=== PATIENT | male | born 1975 | race Two or more races ===

== ENCOUNTER 2023-04-08 17:05 | Inpatient (IN) | payer OTHER ==
[~2023-04-08] VITALS: Ht 165.1 cm; Wt 78.5 kg
[2023-04-08] MEDS ORDERED: AMOX1TAB16 PO (18:31)
[2023-04-08] MEDS ORDERED: METR500T PO (18:31)
[2023-04-08 18:37] LABS: BASOPHILS % (AUTO) 0.4 % (0.0-2.0); EOSINOPHILS # (AUTO) 0.1 K/uL (0.0-0.7); EOSINOPHILS % (AUTO) 1.8 % (0.0-6.0); HEMATOCRIT 40 % (39-51); HEMOGLOBIN 13.3 g/dL (13.5-17.5); LYMPHOCYTES # (AUTO) 1.2 K/uL (0.8-4.8); LYMPHOCYTES % (AUTO) 23.4 % (20.0-44.0); MEAN CORPUSCULAR HEMOGLOBIN 31 PG (26.0-33.0); MEAN CORPUSCULAR HGB CONC 33 g/dl (31.0-36.0); MEAN CORPUSCULAR VOLUME 92 fL (80-96); MONOCYTES # (AUTO) 0.4 K/uL (0.1-1.30); MONOCYTES % (AUTO) 8.6 % (2.0-12.0); NEUTROPHILS # (AUTO) 3.4 K/uL (1.8-8.9); NEUTROPHILS % (AUTO) 65.8 % (43.0-81.0); PLATELET COUNT (AUTO) 361 K/uL (150-450); RED BLOOD CELL COUNT(AUTO) 4.34 MIL/uL (4.5-6.0); RED CELL DISTRIBUTION WIDTH 14.2 % (11.5-15.0); WHITE BLOOD COUNT (AUTO) 5.1 K/uL (4.3-11.0)
[2023-04-08 18:45] LABS: CALCIUM, SERUM 9.8 mg/dL (8.5-10.1); CREATININE 0.8 mg/dL (0.6-1.3); POTASSIUM 3.5 mmol/L (3.5-5.1)
[2023-04-08 18:53] LABS: INR 1.06 (0.91-1.10); PARTIAL THROMBOPLASTIN TIME 32.5 SEC (24.3-34.3); PROTHROMBIN TIME 11.2 SECS (9.2-11.1)
[2023-04-08] MEDS ORDERED: MAGNESIUM HYDROXIDE 30 ML UDC PO PRN (21:00)
[2023-04-08] MEDS ORDERED: MAG HYDROX/AL HYDROX/SIMETH 30 ML UDC PO PRN (21:00)
[2023-04-08] MEDS ORDERED: Z GUARD REMEDY 4 OZ OINT TP PRN (21:00)
[2023-04-08] MEDS ORDERED: DEXTROSE 50%-WATER 50 ML DISP.SYRIN IV PRN (21:00)
[2023-04-09] MEDS ORDERED: CEFEPIME 2 GM in IV D5W 100 ML IV SCH (03:30)
[2023-04-09 03:40] VITALS: BP 124/83; TEMP 97.7
[2023-04-09] MEDS: ENOXAPARIN SODIUM 40 MG/0.4 ML DISP.SYRIN SQ SCH (04:01)
[2023-04-09] MEDS: VANCOMYCIN 1.5 GM in IV D5W 500ml IV ONE (05:30)
[2023-04-09] MEDS ORDERED: CEFEPIME 1 GM VIAL ONE (05:44)
[2023-04-09] MEDS: BLOOD SUGAR DIAGNOSTIC 1 EACH STRIP IN SCH (06:43)
[2023-04-09] MEDS: INSULIN REGULAR, HUMAN 100 UNIT/ML 3 ML VIAL SQ PRN (06:43)
[2023-04-09 06:58] LABS: BASOPHILS % (AUTO) 0.3 % (0.0-2.0); EOSINOPHILS # (AUTO) 0.1 K/uL (0.0-0.7); EOSINOPHILS % (AUTO) 3.4 % (0.0-6.0); HEMATOCRIT 41 % (39-51); HEMOGLOBIN 13.6 g/dL (13.5-17.5); LYMPHOCYTES # (AUTO) 1.1 K/uL (0.8-4.8); LYMPHOCYTES % (AUTO) 28.8 % (20.0-44.0); MEAN CORPUSCULAR HEMOGLOBIN 31 PG (26.0-33.0); MEAN CORPUSCULAR HGB CONC 33 g/dl (31.0-36.0); MEAN CORPUSCULAR VOLUME 92 fL (80-96); MONOCYTES # (AUTO) 0.3 K/uL (0.1-1.30); MONOCYTES % (AUTO) 7.5 % (2.0-12.0); NEUTROPHILS # (AUTO) 2.4 K/uL (1.8-8.9); PLATELET COUNT (AUTO) 362 K/uL (150-450); RED BLOOD CELL COUNT(AUTO) 4.46 MIL/uL (4.5-6.0); RED CELL DISTRIBUTION WIDTH 14.4 % (11.5-15.0); WHITE BLOOD COUNT (AUTO) 3.9 K/uL (4.3-11.0)
[2023-04-09 07:08] LABS: CALCIUM, SERUM 9.7 mg/dL (8.5-10.1); CREATININE 0.9 mg/dL (0.6-1.3); MAGNESIUM 2.1 mg/dL (1.8-2.4); PHOSPHORUS 4.6 mg/dL (2.5-4.9); POTASSIUM 3.4 mmol/L (3.5-5.1)
[2023-04-09 07:30] VITALS: BP 102/68; TEMP 98.1; O2SAT 98
[2023-04-09] MEDS: PANTOPRAZOLE 40 MG TABLET.DR PO SCH (07:34)
[2023-04-09] MEDS: CEFEPIME 2 GM in IV D5W 100 ML IV SCH (07:34)
[2023-04-09] MEDS: POTASSIUM CHLORIDE 20 MEQ TAB.PRT.SR PO ONE (09:28)
[2023-04-09] MEDS: VANCOMYCIN 1 GM in IV D5W 250 ML IV SCH (13:22)
[2023-04-09] MEDS: ACETAMINOPHEN 325 MG TABLET PO PRN (14:19)
[2023-04-09 16:00] VITALS: BP 123/85; TEMP 98.2; O2SAT 98
[2023-04-09 20:00] VITALS: BP 130/87; TEMP 98.4; O2SAT 99
[2023-04-10] MEDS ORDERED: FENTANYL PF 250MCG/5ML AMPUL ONE (07:16)
[2023-04-10] MEDS ORDERED: MIDAZOLAM HCL 2 MG/2ML VIAL ONE (07:17)
[2023-04-10] MEDS ORDERED: HYDROMORPHONE INJ 2 MG/ML DISP.SYRIN ONE (07:18)
[2023-04-10] MEDS ORDERED: FAMOTIDINE/PF INJ 20 MG/2 ML VIAL IV ONE (07:19)
[2023-04-10] MEDS ORDERED: ROCURONIUM BROMIDE 50 MG/5 ML ONE (07:19)
[2023-04-10] MEDS ORDERED: BUPIVACAINE 0.25% 75 MG/30 ML VIAL ONE (07:32)
[2023-04-10] MEDS ORDERED: ANESTHESIA TRAY IN PYXIS 1 EA TRAY MC ONE (07:32)
[2023-04-10] MEDS ORDERED: POLYMYXIN B SULFATE 500,000 UNITS ONE ×2 (07:32→08:48)
[2023-04-10 07:43] LABS: CREATININE 0.8 mg/dL (0.6-1.3); POTASSIUM 3.5 mmol/L (3.5-5.1)
[2023-04-10] MEDS ORDERED: VANCOMYCIN 1 GM VIAL ONE ×2 (07:53→09:41)
[2023-04-10 08:00] VITALS: BP 139/89; TEMP 98.8; O2SAT 98
[2023-04-10] MEDS ORDERED: HEMOSTATIC MATRIX 8 ML 1 EACH PAD MC ONE (09:46)
[2023-04-10] MEDS ORDERED: TRANEXAMIC ACID 1,000 MG/10 ML VIAL ONE (09:46)
[2023-04-10] MEDS ORDERED: HYDROMORPHONE 1 MG/1 ML DISP.SYRIN ONE (10:35)
[2023-04-10 11:14] VITALS: BP 148/94; TEMP 98.5; O2SAT 98
[2023-04-10 11:24] LABS: HEMOGLOBIN 13.4 g/dL (13.5-17.5)
[2023-04-10 12:00] VITALS: BP 146/85; TEMP 97.7; O2SAT 100
[2023-04-10] MEDS ORDERED: VANCOMYCIN 1 GM in IV D5W 250 ML IV SCH (13:00)
[2023-04-10] MEDS: ENOXAPARIN SODIUM 40 MG/0.4 ML DISP.SYRIN SQ SCH (13:33)
[2023-04-10 16:00] VITALS: BP 112/71; TEMP 97.3; O2SAT 99
[2023-04-10] MEDS: MORPHINE SULFATE INJ 2 MG/ML DISP.SYRIN IV PRN (17:01)
[2023-04-10] MEDS: ONDANSETRON HCL/PF 4 MG/2 ML VIAL IVP PRN (18:15)
[2023-04-10 20:00] VITALS: BP 118/64; TEMP 98.3; O2SAT 99
[2023-04-11 07:36] LABS: CALCIUM, SERUM 9.3 mg/dL (8.5-10.1); CREATININE 0.8 mg/dL (0.6-1.3); POTASSIUM 3.9 mmol/L (3.5-5.1)
[2023-04-11 08:26] VITALS: BP 152/75; TEMP 97.7; O2SAT 95
[2023-04-11 12:30] VITALS: BP 142/64; TEMP 97.5; O2SAT 98
[2023-04-11 18:06] VITALS: BP 108/73; TEMP 98.6; O2SAT 98
[2023-04-11 20:00] VITALS: BP_SYST 101; BP_SYST 108; BP_DIAS 72; BP_DIAS 75; TEMP 99.3; O2SAT 98; O2SAT 99
[2023-04-12 07:00] VITALS: BP 118/72; TEMP 99.2; O2SAT 98
[2023-04-12 07:06] LABS: BASOPHILS % (AUTO) 0.2 % (0.0-2.0); EOSINOPHILS # (AUTO) 0.1 K/uL (0.0-0.7); EOSINOPHILS % (AUTO) 1.4 % (0.0-6.0); HEMATOCRIT 36 % (39-51); HEMOGLOBIN 11.9 g/dL (13.5-17.5); LYMPHOCYTES % (AUTO) 10.7 % (20.0-44.0); MEAN CORPUSCULAR HEMOGLOBIN 31 PG (26.0-33.0); MEAN CORPUSCULAR HGB CONC 33 g/dl (31.0-36.0); MEAN CORPUSCULAR VOLUME 93 fL (80-96); MONOCYTES # (AUTO) 0.7 K/uL (0.1-1.30); MONOCYTES % (AUTO) 6.8 % (2.0-12.0); NEUTROPHILS # (AUTO) 7.9 K/uL (1.8-8.9); NEUTROPHILS % (AUTO) 80.9 % (43.0-81.0); PLATELET COUNT (AUTO) 319 K/uL (150-450); RED BLOOD CELL COUNT(AUTO) 3.83 MIL/uL (4.5-6.0); RED CELL DISTRIBUTION WIDTH 14.5 % (11.5-15.0); WHITE BLOOD COUNT (AUTO) 9.7 K/uL (4.3-11.0)
[2023-04-12 07:47] LABS: CALCIUM, SERUM 9.2 mg/dL (8.5-10.1); CREATININE 0.9 mg/dL (0.6-1.3); POTASSIUM 3.5 mmol/L (3.5-5.1)
[2023-04-12 16:00] VITALS: BP 110/65; TEMP 98.8; O2SAT 99
[2023-04-12 20:00] VITALS: BP 124/77; TEMP 99.3; O2SAT 98
[2023-04-13 08:12] LABS: CALCIUM, SERUM 9.4 mg/dL (8.5-10.1); CREATININE 0.7 mg/dL (0.6-1.3); POTASSIUM 3.8 mmol/L (3.5-5.1)
[2023-04-13 15:58] VITALS: BP 118/76; TEMP 98.4; O2SAT 97
[2023-04-13 20:00] VITALS: BP 114/70; TEMP 98.6; O2SAT 98
[2023-04-14 07:00] VITALS: BP 127/78; TEMP 98.4; O2SAT 98
[2023-04-14 08:11] LABS: CALCIUM, SERUM 9.4 mg/dL (8.5-10.1); CREATININE 0.8 mg/dL (0.6-1.3); POTASSIUM 3.7 mmol/L (3.5-5.1)
[2023-04-14 16:00] VITALS: BP 108/65; TEMP 98.5; O2SAT 100
[2023-04-14 20:00] VITALS: BP 106/72; TEMP 98.8; O2SAT 97
[2023-04-15 06:28] LABS: BASOPHILS % (AUTO) 0.5 % (0.0-2.0); EOSINOPHILS # (AUTO) 0.1 K/uL (0.0-0.7); EOSINOPHILS % (AUTO) 1.9 % (0.0-6.0); HEMATOCRIT 36 % (39-51); HEMOGLOBIN 12.4 g/dL (13.5-17.5); LYMPHOCYTES # (AUTO) 1.3 K/uL (0.8-4.8); LYMPHOCYTES % (AUTO) 18.5 % (20.0-44.0); MEAN CORPUSCULAR HEMOGLOBIN 31 PG (26.0-33.0); MEAN CORPUSCULAR HGB CONC 34 g/dl (31.0-36.0); MEAN CORPUSCULAR VOLUME 91 fL (80-96); MONOCYTES # (AUTO) 0.7 K/uL (0.1-1.30); MONOCYTES % (AUTO) 9.4 % (2.0-12.0); NEUTROPHILS # (AUTO) 4.9 K/uL (1.8-8.9); NEUTROPHILS % (AUTO) 69.7 % (43.0-81.0); PLATELET COUNT (AUTO) 362 K/uL (150-450); RED BLOOD CELL COUNT(AUTO) 3.98 MIL/uL (4.5-6.0); RED CELL DISTRIBUTION WIDTH 14.4 % (11.5-15.0); WHITE BLOOD COUNT (AUTO) 7.1 K/uL (4.3-11.0)
[2023-04-15 06:55] LABS: CALCIUM, SERUM 9.4 mg/dL (8.5-10.1); CREATININE 0.8 mg/dL (0.6-1.3); MAGNESIUM 2.1 mg/dL (1.8-2.4); PHOSPHORUS 4.8 mg/dL (2.5-4.9); POTASSIUM 3.6 mmol/L (3.5-5.1)
[2023-04-15 08:00] VITALS: BP 127/82; TEMP 98.4; O2SAT 98
[2023-04-15] MEDS ORDERED: VANC1PLA9 IV (09:44)
[2023-04-15] MEDS ORDERED: CEFE2FRO IV (09:44)
[2023-04-15 16:00] VITALS: BP 110/76; TEMP 98.4; O2SAT 98
[2023-04-16 07:30] VITALS: BP 112/79; TEMP 98.4; O2SAT 99
[2023-04-16 16:00] VITALS: BP 105/82; TEMP 98.2; O2SAT 100
[2023-04-16 20:00] VITALS: BP 123/75; TEMP 98.9; O2SAT 98
[2023-04-17 07:40] LABS: BASOPHILS % (AUTO) 0.7 % (0.0-2.0); EOSINOPHILS # (AUTO) 0.2 K/uL (0.0-0.7); EOSINOPHILS % (AUTO) 3.6 % (0.0-6.0); HEMATOCRIT 37 % (39-51); HEMOGLOBIN 12.3 g/dL (13.5-17.5); LYMPHOCYTES # (AUTO) 1.2 K/uL (0.8-4.8); LYMPHOCYTES % (AUTO) 20.3 % (20.0-44.0); MEAN CORPUSCULAR HEMOGLOBIN 31 PG (26.0-33.0); MEAN CORPUSCULAR HGB CONC 34 g/dl (31.0-36.0); MEAN CORPUSCULAR VOLUME 91 fL (80-96); MONOCYTES # (AUTO) 0.6 K/uL (0.1-1.30); MONOCYTES % (AUTO) 10.2 % (2.0-12.0); NEUTROPHILS # (AUTO) 3.9 K/uL (1.8-8.9); NEUTROPHILS % (AUTO) 65.2 % (43.0-81.0); PLATELET COUNT (AUTO) 334 K/uL (150-450); RED BLOOD CELL COUNT(AUTO) 4.01 MIL/uL (4.5-6.0)
[2023-04-17 08:29] VITALS: BP 106/69; TEMP 98.2; O2SAT 99
[2023-04-17 09:08] LABS: CALCIUM, SERUM 9.5 mg/dL (8.5-10.1); CREATININE 0.8 mg/dL (0.6-1.3); POTASSIUM 3.7 mmol/L (3.5-5.1)
[2023-04-17 16:23] VITALS: BP 120/67; TEMP 98.6; O2SAT 100
[2023-04-18 07:31] LABS: CALCIUM, SERUM 9.5 mg/dL (8.5-10.1); CREATININE 0.8 mg/dL (0.6-1.3); POTASSIUM 3.6 mmol/L (3.5-5.1)
[2023-04-18] MEDS: VANCOMYCIN 1 GM /D5W 250 ML PB IV ONE (08:08)
[2023-04-18 08:24] VITALS: BP 110/80; TEMP 98.4; O2SAT 100
[2023-04-18] MEDS: VANCOMYCIN HCL 0.75 GM in IV D5W 250 ML IV SCH (13:41)
[2023-04-18 16:08] VITALS: BP 117/84; TEMP 98.9; O2SAT 100
[2023-04-18 20:00] VITALS: BP 118/84; TEMP 98.6; O2SAT 100
[2023-04-19 07:30] VITALS: BP 104/76; TEMP 97.7; O2SAT 99
[2023-04-19 08:04] LABS: CALCIUM, SERUM 9.6 mg/dL (8.5-10.1); CREATININE 0.7 mg/dL (0.6-1.3); POTASSIUM 4.3 mmol/L (3.5-5.1)
[2023-04-19 16:00] VITALS: BP 106/70; TEMP 98.1; O2SAT 98
[2023-04-19 20:00] VITALS: BP 112/71; TEMP 98.8; O2SAT 100
[2023-04-20 07:30] VITALS: BP 110/76; TEMP 98.1; O2SAT 100
[2023-04-20 08:05] LABS: CALCIUM, SERUM 9.3 mg/dL (8.5-10.1); CREATININE 0.8 mg/dL (0.6-1.3); POTASSIUM 3.7 mmol/L (3.5-5.1)
[2023-04-20 16:00] VITALS: BP 121/81; TEMP 97.9; O2SAT 96
[2023-04-20 20:00] VITALS: BP 113/75; TEMP 99.8; O2SAT 100
[2023-04-21 06:54] LABS: CALCIUM, SERUM 9.4 mg/dL (8.5-10.1); CREATININE 0.8 mg/dL (0.6-1.3); POTASSIUM 3.6 mmol/L (3.5-5.1)
[2023-04-21 08:00] VITALS: BP 123/69; TEMP 97.7; O2SAT 98
[2023-04-21 16:00] VITALS: BP 107/73; TEMP 98.2; O2SAT 99
[2023-04-21 20:00] VITALS: BP 103/74; TEMP 97.9; O2SAT 96
[2023-04-22 07:17] LABS: CALCIUM, SERUM 9.4 mg/dL (8.5-10.1); CREATININE 0.7 mg/dL (0.6-1.3); POTASSIUM 3.8 mmol/L (3.5-5.1)
[2023-04-22 08:00] VITALS: BP 103/68; TEMP 98.2; O2SAT 99
[2023-04-22 16:00] VITALS: BP 136/92; TEMP 97.5; O2SAT 100
[2023-04-22 21:12] VITALS: BP 114/79; TEMP 98.4; O2SAT 98
[2023-04-23 07:00] VITALS: BP 103/64; TEMP 97.5; O2SAT 99
[2023-04-23 07:45] LABS: CALCIUM, SERUM 9.3 mg/dL (8.5-10.1); CREATININE 0.7 mg/dL (0.6-1.3); POTASSIUM 3.8 mmol/L (3.5-5.1)
[2023-04-23 16:00] VITALS: BP 112/73; TEMP 97.7; O2SAT 99
[2023-04-23 20:00] VITALS: BP 106/70; TEMP 98.4; O2SAT 98
[2023-04-24 07:49] LABS: CALCIUM, SERUM 9.4 mg/dL (8.5-10.1); CREATININE 0.6 mg/dL (0.6-1.3)
[2023-04-24 08:00] VITALS: BP 114/76; TEMP 98.2; O2SAT 100
[2023-04-24 16:00] VITALS: BP 105/70; TEMP 98.4; O2SAT 97
[2023-04-24 20:15] VITALS: BP 111/71; TEMP 98.8; O2SAT 100
[2023-04-25 07:18] LABS: CALCIUM, SERUM 9.2 mg/dL (8.5-10.1); CREATININE 0.8 mg/dL (0.6-1.3); POTASSIUM 3.7 mmol/L (3.5-5.1)
[2023-04-25 08:30] VITALS: BP 100/70; TEMP 97.9; O2SAT 98
[2023-04-25 08:45] LABS: BASOPHILS % (AUTO) 0.5 % (0.0-2.0); EOSINOPHILS # (AUTO) 0.2 K/uL (0.0-0.7); EOSINOPHILS % (AUTO) 4.4 % (0.0-6.0); HEMATOCRIT 38 % (39-51); HEMOGLOBIN 12.6 g/dL (13.5-17.5); LYMPHOCYTES % (AUTO) 25.2 % (20.0-44.0); MEAN CORPUSCULAR HEMOGLOBIN 30 PG (26.0-33.0); MEAN CORPUSCULAR HGB CONC 33 g/dl (31.0-36.0); MEAN CORPUSCULAR VOLUME 90 fL (80-96); MONOCYTES # (AUTO) 0.4 K/uL (0.1-1.30); MONOCYTES % (AUTO) 8.7 % (2.0-12.0); NEUTROPHILS # (AUTO) 2.5 K/uL (1.8-8.9); NEUTROPHILS % (AUTO) 61.2 % (43.0-81.0); PLATELET COUNT (AUTO) 262 K/uL (150-450); RED BLOOD CELL COUNT(AUTO) 4.17 MIL/uL (4.5-6.0); RED CELL DISTRIBUTION WIDTH 14.1 % (11.5-15.0); WHITE BLOOD COUNT (AUTO) 4.1 K/uL (4.3-11.0)
[2023-04-25] MEDS ORDERED: HYDROCODONE/APAP 5/325MG TABLET PO PRN (10:30)
== END 2023-04-25 15:43 | DRG 516 ==
LOC: ER 17:17 → MED 04-09 03:06
PROVIDERS: ADMIT Nurse Practitioner Family; ATTEND Student in an Organized Health Care Education/Training Program
PROC: 0QB30ZZ Excision of Left Pelvic Bone, Open Approach (ICD-10-PCS; principal; 2023-04-10)
PROC: XW0V0P7 Introduction of Gentamicin-eluting Bone Void Filler into Bones, Open Approach, New Technology Group 7 (ICD-10-PCS; 2023-04-10)
PROC: B548ZZA Ultrasonography of Superior Vena Cava, Guidance (ICD-10-PCS; 2023-04-14)
PROC: 02HV33Z Insertion of Infusion Device into Superior Vena Cava, Percutaneous Approach (ICD-10-PCS; 2023-04-15)
DX: T84.52XA Infection and inflammatory reaction due to internal left hip prosthesis, initial encounter (principal); E87.1 Hypo-osmolality and hyponatremia; Z20.822 Contact with and (suspected) exposure to COVID-19; Y83.1 Surgical operation with implant of artificial internal device as the cause of abnormal reaction of the patient, or of later complication, without mention of misadventure at the time of the procedure; D64.9 Anemia, unspecified; I10 Essential (primary) hypertension; Y92.9 Unspecified place or not applicable; E11.9 Type 2 diabetes mellitus without complications
CPT/HCPCS: 36415; 71045-TC; 73020; 80048-TC; 80061-TC; 80202-TC; 82962-TC; 83605-TC; 83735-TC; 84100-TC; 85025-TC; 85027-TC; 85652-TC; 85730-TC; 86140-TC; 86850-TC; 87040-TC; 88302-TC; 97116-TC; 97530-TC; A4217; A4223; A6253; C1713; C9803; G0378; J0690; J0692; J1170; J1650; J1815; J2250; J2270; J2405; J2704; J2765; J3010; J3370; J3490; J7030; J7050; J7060